=== PATIENT | male | born 1980 | race Two or more races ===

== ENCOUNTER 2016-09-21 16:50 | Emergency (ER) | payer OTHER, MEDICAID ==
[~2016-09-21] VITALS: Ht 170.2 cm; Wt 68.0 kg
[2016-09-21 17:18] VITALS: BP 109/75
[2016-09-21] MEDS ORDERED: CLIN-44 PO (17:49)
[2016-09-21] MEDS ORDERED: HYDR-971 PO (17:49)
--- NOTE | 2016-09-21 17:50 | PHYS DOC ---
Past Medical History Past Medical History: No Pertinent History Additional Past Medical Histor: HEAT STROKE WITH KIDNEY FAILURE Past Surgical History: Other Additional Past Surgical Histo: RIGHT 5TH FINGER SURGERY Additional Information: 1 PACK/DAY Alcohol Use: Rarely Drug Use: Marijuana Adult General Chief Complaint Chief Complaint: FINGER INJURY HPI HPI Patient is a 36 year old male who presents with right pinky finger infection that began 3 days ago. [place]. He states approximately 2 months ago he was injured and had a partial amputation of the right pinky finger tip which was fixed with hardware. Patient states for the last 3 days he has noticed some drainage coming from underneath the fingernail. Patient denies any fever. Review of Systems Review of Systems Constitutional: Denies fever or chills [] Musculoskeletal: drainage from the right pinky finger. Integument: Denies rash or skin lesions [] Neurologic: Denies headache, focal weakness or sensory changes [] Endocrine: Denies polyuria or polydipsia [] Allergies Allergies Allergies Coded Allergies Type Severity Reaction Last Updated Verified No Known Drug Allergies 09/21/16 No Physical Exam Physical Exam Constitutional: Well developed, well nourished, no acute distress, non-toxic appearance. [] Skin: See extremity Back: No tenderness, no CVA tenderness. [] Extremities: Right pinky finger with no obvious deformity, the finger nail base is to be broken, no drainage noted on exam, there is small amount of swelling around the fingernail base, there is diffuse trace cellulitis around the dorsal aspect of the finger. The finger feels warm and tender to palpate especially at the nail base. Neurologic: Alert and oriented X 3, normal motor function, normal sensory function, no focal deficits noted. [] Psychologic: Affect normal, judgement normal, mood normal. [] Current Patient Data Vital Signs Vital Signs Date Time Temp Pulse Resp B/P Pulse Ox O2 Delivery O2 Flow Rate FiO2 09/21/16 17:18 97.9 59 16 97 Room Air 97.9 EKG EKG [] Radiology/Procedures Radiology/Procedures [] Course & Med Decision Making Course & Med Decision Making Pertinent Labs and Imaging studies reviewed. (See chart for details) Patient has infection to the right pinky finger. He has history of amputation of the finger which was repaired 2 months ago. He was put on clindamycin for 10 days. Discharged with [facility] for pain. Tetanus up-to-date. Follow-up with his own orthopedic doctor as soon as he can. Provided return precautions and discharged in stable condition. Linda Disclaimer Linda Disclaimer This electronic medical record was generated, in whole or in part, using a voice recognition dictation system. Departure Departure Impression: Primary Impression: Paronychia of finger of right hand Disposition: HOME, SELF-CARE Condition: STABLE Referrals: UNKNOWN PCP NAME (PCP) Follow-up with your own doctor in one week Patient Instructions: Paronychia, [id number] Additional Instructions: You have infection of the right pinky finger. Soak the finger in Epsom salts twice a day. Keep it clean and dry. Follow-up with your own doctor as soon as you get back home. Ensure you complete your antibiotics. Come back to the emergency room if symptoms worsen. Scripts Clindamycin Hcl 150 Mg Capsule3 Cap PO TID #90 CAP Prov:TREMAYNE BURTON APRN 09/21/16 Hydrocodone/Apap 5-325 ([place] 5-325 Tablet)1 Each Tablet1-2 Tab PO Q4-6HRS #20 TAB Prov:TREMAYNE BURTON APRN 09/21/16 TREMAYNE BURTON APRN Sep 21, 2016 17:50
== END 2016-09-21 17:54 | disposition home or self-care (01) ==
LOC: ER 16:57
DX: L03.011 Cellulitis of right finger (principal); F12.10 Cannabis abuse, uncomplicated; N18.9 Chronic kidney disease, unspecified; F17.200 Nicotine dependence, unspecified, uncomplicated; I50.9 Heart failure, unspecified; Z89.021 Acquired absence of right finger(s)
CPT/HCPCS: 99283